=== PATIENT | male | born 1960 | race Caucasian/White ===

== ENCOUNTER 2023-05-08 07:21 | Emergency (ER) | payer BC ==
[~2023-05-08] VITALS: Ht 175.3 cm; Wt 98.9 kg
[2023-05-08 07:32] VITALS: BP 151/70
[2023-05-08] MEDS ORDERED: Lisinopril2.5 MG (07:35)
[2023-05-08] MEDS ORDERED: METO25ER (07:35)
== END 2023-05-08 07:57 | disposition home or self-care (01) ==
LOC: ER 07:21
DX: U07.1 COVID-19 (principal); I10 Essential (primary) hypertension; Z79.899 Other long term (current) drug therapy
CPT/HCPCS: 99284